=== PATIENT | male | born 1990 | race Caucasian/White ===

== ENCOUNTER 2016-09-27 15:17 | Emergency (ER) | payer SELFPAY ==
[~2016-09-27] VITALS: Ht 182.9 cm; Wt 90.9 kg
[2016-09-27] MEDS ORDERED: PERCOCET 325 MG1 TA2 PO (17:00)
[2016-09-27 17:19] VITALS: BP 178/70
== END 2016-09-27 17:06 | disposition home or self-care (01) ==
LOC: ED 15:17
DX: M72.2 Plantar fascial fibromatosis (principal); M51.26 Other intervertebral disc displacement, lumbar region; W12.XXXA Fall on and from scaffolding, initial encounter